=== PATIENT | male | born 1990 | race Caucasian/White ===

== ENCOUNTER 2017-04-08 10:00 | Outpatient (CLI) | payer OTHER | END 2017-04-08 10:01 | disposition home or self-care (01) | LOC: BICRAD 10:00 | PROVIDERS: ATTEND Internal Medicine | DX: J32.9 Chronic sinusitis, unspecified (principal); J34.89 Other specified disorders of nose and nasal sinuses | CPT/HCPCS: 70220 ==

== ENCOUNTER 2017-04-16 15:41 | Outpatient (CLI) | payer OTHER | END 2017-04-16 15:42 | disposition home or self-care (01) | LOC: CTENTCT 15:41 | PROVIDERS: ATTEND Otolaryngology Plastic Surgery within the Head & Neck | DX: J32.9 Chronic sinusitis, unspecified (principal) | CPT/HCPCS: 70486 ==

== ENCOUNTER 2017-08-26 09:35 | Day surgery (SDC) | payer OTHER ==
[2017-08-25 10:00] VITALS: BMI 25.0
[2017-08-26] MEDS ORDERED: Oxymetazoline HCl 0.05% ( 15 ML ) ONE ×2 (10:03→12:07)
[2017-08-26] MEDS ORDERED: Midazolam HCl 2 mg/2 ml Vial ONE ×2 (10:11→12:05)
[2017-08-26] MEDS ORDERED: Fentanyl 100 MCG/2 ML VIAL ONE ×2 (12:05→13:49)
[2017-08-26] MEDS ORDERED: Morphine 4 MG/ML VIAL ONE (12:05)
[2017-08-26] MEDS ORDERED: Lidocaine 1% w/Epinephrine 1:100K 30 ML VIAL ONE (12:07)
[2017-08-26] MEDS ORDERED: Bacitracin Zinc Ointment 30 gm TUBE ONE (12:07)
[2017-08-26] MEDS ORDERED: Ondansetron HCl/PF 4 MG/2 ML Vial ONE (15:03)
[2017-08-26] MEDS ORDERED: Dexamethasone 20 MG/5 ML VIAL ONE (15:03)
[2017-08-26] MEDS ORDERED: PROPOFOL 200 MG/20 ML VIAL ONE (15:03)
[2017-08-26] MEDS ORDERED: Lidocaine 1% PF 5 ML VIAL ONE (15:03)
[2017-08-26] MEDS ORDERED: Succinylcholine Chloride 20 MG/ML 10 ml SYRINGE FS ONE (15:03)
[2017-08-26] MEDS ORDERED: Hydrocodone-Acetamin 15 ML UDCUP ONE (16:39)
--- NOTE | 2017-08-27 12:24 | OP ---
DATE OF SURGERY: 08/26/2017 PREOPERATIVE DIAGNOSES: 1. Chronic rhinosinusitis, chronic pansinusitis. 2. Bilateral inferior turbinate hypertrophy. 3. Nasal septal deviation. 4. Nasal obstruction. POSTOPERATIVE DIAGNOSES: 1. Chronic rhinosinusitis, chronic pansinusitis. 2. Bilateral inferior turbinate hypertrophy. 3. Nasal septal deviation. 4. Nasal obstruction. PROCEDURES: 1. Bilateral endoscopic sinus surgery, total ethmoidectomies. 2. Bilateral endoscopic sinus surgery, maxillary antrostomies. 3. Bilateral endoscopic sinus surgery, frontal sinusotomies. 4. Bilateral endoscopic sinus surgery, sphenoidotomies. 5. Nasal septoplasty. 6. Bilateral inferior turbinate submucosal resection. SURGEON: Gregorio Rogers M.D. ESTIMATED BLOOD LOSS: 50 mL. COMPLICATIONS: None. ANESTHESIA: GETA. PROCEDURE IN DETAIL: Patient was taken to the operating room and placed supine on the table. Genera l endotracheal anesthesia was obtained by the Anesthesia staff. Tube was secured in the left lower l ip. Patient was then placed in the beach chair position, and Afrin pledgets were placed in the nasal cavity. Injections of 1% lidocaine with 1:100,000 epinephrine were made into the nasal septum as wel l as the inferior turbinates. Patient was then prepped and draped in standard surgical fashion for n ciera surgery. Following this, the Afrin pledgets were removed. A Donavan incision was made on the l eft nasal septum. Submucoperichondrial dissection was performed. The deviated portions of the septu m included portions of the cartilage and the bony septum. These isolated areas were removed using th ree cutting rongeurs. There was noted to be a large dorsal and caudal strut, left intact for support of the nose. The mucoperichondrial flaps were then reapproximated using a 4-0 gut stitch. Any stra ight pieces of cartilage were crushed prior to this and placed between the mucoperichondrial flaps. Following this, the inferior turbinates were then punctured with a submucosal coblation wand, and sub mucosal coblation were performed of multiple areas of the inferior portion of the anterior inferior t urbinate. Please note that the submucosal microdebrider was used to submucosally resect the anterior and inferi or portions of the inferior turbinates bilaterally. Following this, the Troy elevator was used to l aterally fracture the inferior turbinates. Following this, the 0 degree scope was advanced in the na ramon cavity, middle turbinates were medialized using a Troy elevator. The uncinate process was then anteriorly fractured using the ball-ended probe and removed using the microdebrider and upbiting Alton esley forceps. Following this, the natural maxillary sinus ostia was identified bilaterally and the curved microdebrider was used to gently widen the maxillary ostia bilaterally. Following this, the e thmoidal bulla was identified and was punctured on its medial and inferior aspect bilaterally with th e straight microdebrider. Following this, the ethmoidal bulla was completely resected bilaterally us ing the microdebrider and straight Blakesley forceps. Following this, the grand lamella was identifi ed bilaterally and was punctured into the posterior ethmoidal cells. Working from posterior to anter ior, the ethmoidal cells were opened in a mucosal-sparing technique. Following this, these sphenoid air cells were approached through the previous ethmoidectomies where the posterior nasal wall was jennifer ntified and staying just medial and inferior to the superior turbinate. The sphenoidotomies were cre ated using a straight John tip suction bilaterally. Following this, the sphenoidotomies were wide maykel medially and inferiorly using the microdebrider. Following this, the curved microdebrider along with the 45 degree scope were used to further open the frontal recess cells as well as identify the f rontal sinus ostia bilaterally. The frontal sinus ostia were then widened using the curved microdebr ider bilaterally. Following this, the nasal cavity was irrigated. Mirapex were placed in the middle meatus. Chinchilla splints were placed and secured. The patient tolerated the procedure well.
== END 2017-08-26 17:50 | disposition home or self-care (01) ==
LOC: SDC 09:35
PROVIDERS: ATTEND Otolaryngology Plastic Surgery within the Head & Neck
PROC: 09TL8ZZ Resection of Nasal Turbinate, Via Natural or Artificial Opening Endoscopic (ICD-10-PCS; principal; 2017-08-26)
PROC: 099Q8ZZ Drainage of Right Maxillary Sinus, Via Natural or Artificial Opening Endoscopic (ICD-10-PCS; principal; 2017-08-26)
PROC: 09BW8ZZ Excision of Right Sphenoid Sinus, Via Natural or Artificial Opening Endoscopic (ICD-10-PCS; principal; 2017-08-26)
PROC: 09CM0ZZ Extirpation of Matter from Nasal Septum, Open Approach (ICD-10-PCS; principal; 2017-08-26)
PROC: 09TU8ZZ Resection of Right Ethmoid Sinus, Via Natural or Artificial Opening Endoscopic (ICD-10-PCS; principal; 2017-08-26)
PROC: 09TV8ZZ Resection of Left Ethmoid Sinus, Via Natural or Artificial Opening Endoscopic (ICD-10-PCS; principal; 2017-08-26)
PROC: 099R8ZZ Drainage of Left Maxillary Sinus, Via Natural or Artificial Opening Endoscopic (ICD-10-PCS; principal; 2017-08-26)
PROC: 09BS8ZZ Excision of Right Frontal Sinus, Via Natural or Artificial Opening Endoscopic (ICD-10-PCS; principal; 2017-08-26)
PROC: 09BT8ZZ Excision of Left Frontal Sinus, Via Natural or Artificial Opening Endoscopic (ICD-10-PCS; principal; 2017-08-26)
PROC: 09BX8ZZ Excision of Left Sphenoid Sinus, Via Natural or Artificial Opening Endoscopic (ICD-10-PCS; principal; 2017-08-26)
DX: J32.4 Chronic pansinusitis (principal); J34.3 Hypertrophy of nasal turbinates; J34.2 Deviated nasal septum; J34.89 Other specified disorders of nose and nasal sinuses; Z79.899 Other long term (current) drug therapy
CPT/HCPCS: 96374; J1100; J2001; J2250; J2270; J2405; J2704; J3010

== ENCOUNTER 2017-11-12 14:34 | Outpatient (CLI) | payer OTHER | END 2017-11-12 14:35 | disposition home or self-care (01) | LOC: CTENTCT 14:34 | PROVIDERS: ATTEND Otolaryngology Plastic Surgery within the Head & Neck | DX: J32.9 Chronic sinusitis, unspecified (principal) | CPT/HCPCS: 70486 ==

== ENCOUNTER 2018-02-25 09:05 | Outpatient (CLI) | payer OTHER | END 2018-02-25 09:06 | disposition home or self-care (01) | LOC: CTENTCT 09:05 | PROVIDERS: ATTEND Otolaryngology Plastic Surgery within the Head & Neck | DX: J32.8 Other chronic sinusitis (principal) | CPT/HCPCS: 70486 ==